=== PATIENT | male | born 1930 | race Caucasian/White ===

== ENCOUNTER 2017-10-25 08:14 | Day surgery (SDC) | payer OTHER, SELFPAY ==
[~2017-10-25] VITALS: Ht 172.7 cm; Wt 92.0 kg
[~2017-10-25 08:14] MED LIST: ELIQUIS5 MG PO; FURO40 PO; POTCHL10ER PO
[2017-10-25] MEDS ORDERED: Vitamin C100 M1 PO (08:52)
--- NOTE | 2017-10-25 12:41 | NUR ---
1146-RECEIVED THIS PATIENT FROM THE [facility] [employer] [facility]UT[facility]. S/P PACEMAKER PLACEMENT. PT IS ALERT AND ORIENTED. DENIES PAIN AT THIS TIME. PRESSURE DRESSING TO LEFT UPPER CHEST IS DRY AND INTACT. APPLIED ICE PACK AND 2 LB WEIGHT TO POST PACER SITE AND AN ARM SLING TO LEFT ARM. PT WAS INSTRUCTED NOT TO HYPEREXTEND HIS LEFT ARM. KEEP LEFT ARM CLOSE TO THE BODY POSSIBLE SO TO PREVENT FROM DISLODGING NEWLY PLACED PACEMAKER. 1220-EKG DONE AT THIS TIME PT IS 100% V-PACED. 1230-DR. SIGALA CAME BY TO SEE PT. UPDATED HIM OF PT'S STATUS.
--- NOTE | 2017-10-25 18:11 | NUR ---
SHIFT SUMMARY: PT HAD A PACEMAKER PLACED TODAY TO HIS LEFT UPPER CHEST. SURGICAL SITE IS COVERED WITH PRESSURE DRESSING. DRESSING IS CLEAN, DRY AND INTACT. ICE PACK, 2LB WEIGHT ON TOP OF THE SURGICAL DRESSING. ARM SLING TO LEFT ARM. PT IS 100% V-PACED. PT IS ALERT AND ORIENTED. DENIES SEVERE PAIN. PT STATED SITE IS SOMEWHAT "SORE." PT NOT WANTING PAIN MEDICATION. POSSIBLE DISCHARGE IN THE MORNING. REPEAT EKG IN AM.
--- NOTE | 2017-10-25 19:10 | NUR ---
ASSUMED CARE BEDSIDE REPORT AND ASSESSMENT COMPLETED. PT A&O X 4 AND W/O COMPLAINT. PT IS S/P PACEMAKER INSERTION TODAY. PT HAS PRESSURE DRESSING TO LEFT UPPER CHEST WALL W/ ICE PACK AND TWO POUND WT IN PLACE WITH LEFT ARM SLINGED. VSS, EKG IS 100% VENTRICULAR PACED, SPOT CHECK O2 SATS 98% ON RA. PT'S IN ROOM AND PLANNING ON SPENDING THE NIGHT. WILL CONTINUE TO MONITOR.
--- NOTE | 2017-10-26 06:05 | NUR ---
XRAY PT TO XRAY DEPARTMENT W/ TECH ON TELE MONITOR VIA W/C.
--- NOTE | 2017-10-26 06:16 | NUR ---
SHIFT SUMMARY NO ACUTE EVENTS OVERNIGHT. PT HAS KEPT LEFT ARM IN SLING WITH ICE PACK AND TWO POUND WT PER ORDERS AND CONTINUED TO DENY PAIN FOR SHIFT. EKG SHOWS 100% VENTRICULAR PACED RHYTHM, BP STABLE AND SPOT CHECK O2 SATS >95% ON RA. PT WENT TO XRAY DEPT THIS AM FOR CXR AND HAD 12 LEAD EKG PER ORDERS. HAS REMAINED IN ROOM. WILL CONTINUE TO MONITOR AND REPORT OFF TO AM RN.
--- NOTE | 2017-10-26 09:29 | NUR ---
PT A/O, LUNGS CLEAR AND ON RA, NO N/V, ABD SOFT, HAS BEEN UP TO VOID, NO EDEMA. L SHOULDER SITE DSG D/I WITH ICE BAG AND 2 LBS WEIGHT APPLIED. PT DENIES PAIN BUT NOTES SOME SORENESS. DR SIGALA IN TO REMOVE PRESSURE DSG AND OPSITE DSG UNDER REMAINS INTACT. PT INSTRUCTED TO AFTER CARE BY DR SIGALA BUT WILL REPEAT WITH DISCHARGE. VSS. PT REQUESTS TO HOLD AM LAS[facility] MEDS AND WILL BEGIN AT HE ARRIVES HOME THIS AM.
[2017-10-26] MEDS ORDERED: CEPH500 PO (09:42)
--- NOTE | 2017-10-26 10:23 | NUR ---
1005 pt to [facility] [place] with fany tarango. PT DISCHARGE INSTRUCTIONS AND RX CALLED PER GEOFFREY Del Rio RN WELL IV D/C'ED INTACT. PT DID NOT TAKE PO AM MEDS AT HIS REQUEST AND AGAIN REMINDED TO TAKE THESE UPON ARRIVING HOME. ARM SLING REMAINS IN PLACE AND PT EDUCATED ABOUT USE.
[2018-01-20] MEDS ORDERED: ELIQUIS5 MG PO (15:08)
[2018-01-20] MEDS ORDERED: ONE DAILY COMP1 EACH PO (15:09)
== END 2017-10-26 10:10 | disposition home or self-care (01) ==
LOC: MHTC 08:14 → ICUW 11:49 → MHTC 10-26 10:10
PROC: 02HK3JZ Insertion of Pacemaker Lead into Right Ventricle, Percutaneous Approach (ICD-10-PCS; principal; 2017-10-26)
PROC: 0JH604Z Insertion of Pacemaker, Single Chamber into Chest Subcutaneous Tissue and Fascia, Open Approach (ICD-10-PCS; principal; 2017-10-26)
DX: I48.2 Chronic atrial fibrillation (principal); I44.2 Atrioventricular block, complete; I35.0 Nonrheumatic aortic (valve) stenosis; I87.2 Venous insufficiency (chronic) (peripheral); I50.30 Unspecified diastolic (congestive) heart failure; Z79.899 Other long term (current) drug therapy; Z79.01 Long term (current) use of anticoagulants
CPT/HCPCS: 33207; 71020; 93005; 93010; 99152; 99153; C1786; C1894; C1898; J0690; J1644; J2250; J3010; J7030; J7040; Q9967

== ENCOUNTER 2018-02-09 06:44 | Day surgery (SDC) | payer OTHER, SELFPAY ==
[~2018-02-09] VITALS: Ht 172.7 cm; Wt 91.6 kg
[~2018-02-09 06:44] MED LIST changes: +CEPH500 PO; +ONE DAILY COMP1 EACH PO; +Vitamin C100 M1 PO
[2018-02-10 04:40] LABS: BASOPHILS ABSOLUTE AUTO 0.05 K/mm3 (0.00-0.23); BASOPHILS PERCENT AUTO 1 % (0-2); EOSINOPHILS ABSOLUTE AUTO 0.26 K/mm3 (0.00-0.68); EOSINOPHILS PERCENT AUTO 3 % (0-6); Hematocrit 34.7 % (37.0-53.0); Hemoglobin 11.1 g/dL (13.5-17.5); IMMATURE GRAN ABSOLUTE AUTO 0.01 K/mm3 (0.00-0.10); IMMATURE GRAN PERCENT AUTO 0 % (0-1); LYMPHOCYTES ABSOLUTE AUTO 1.55 K/mm3 (0.84-5.20); LYMPHOCYTES PERCENT AUTO 18 % (21-46); MONOCYTES ABSOLUTE AUTO 1.01 K/mm3 (0.16-1.47); MONOCYTES PERCENT AUTO 12 % (4-13); Mean Corpuscular HGB 30.7 pg (26.0-34.0); Mean Corpuscular Volume 96 fL (80-100); Mean Platelet Volume 10.5 fL (9.1-12.4); NEUTROPHILS ABSOLUTE AUTO 5.55 K/mm3 (1.96-9.15); NEUTROPHILS PERCENT AUTO 66 % (41-73); Platelet Count 170 K/mm3 (150-400); RDW Coefficient Variation 12.8 % (11.7-14.2); RDW Standard Deviation 45.3 fL (35.1-46.3); Red Blood Cell Count 3.62 M/mm3 (4.30-5.90); White Blood Cell Count 8.43 K/mm3 (4.00-11.30)
[2018-02-10 04:55] LABS: Anion Gap 4 mmol/L (6-16); Blood Urea Nitrogen 19 mg/dL (8-24); Bun/Creatinine Ratio 19.4 (12.0-20.0); CO2, Blood 32 mmol/L (21-32); Calcium, Blood 8.2 mg/dL (8.5-10.1); Chloride, Blood 104 mmol/L (98-108); Creatinine, Blood 0.98 mg/dL (0.60-1.20); Glomerular Filtration Rate >60 (60-); Glucose, Blood 124 mg/dL (70-99); Magnesium, Blood 1.9 mg/dL (1.6-2.4); Potassium, Blood 4.3 mmol/L (3.5-5.5); Sodium, Blood 140 mmol/L (136-145)
[2018-02-10] MEDS ORDERED: Percocet 5-3251 EACH PO (09:25)
[2018-02-10] MEDS ORDERED: PROM25 PO (09:25)
== END 2018-02-10 10:50 | disposition home or self-care (01) ==
LOC: SURS 06:44 → PRE IP 06:44 → ORSCMMR 06:44 → PRE IP 10:00 → EDSTATUS 10:00 → SURS 12:20 → ORSCMMR 02-10 10:50 → SURS 02-10 10:50
PROVIDERS: Orthopaedic Surgery
PROC: 0SRC0J9 Replacement of Right Knee Joint with Synthetic Substitute, Cemented, Open Approach (ICD-10-PCS; principal; 2018-02-09 10:00)
DX: M17.11 Unilateral primary osteoarthritis, right knee (principal); I48.91 Unspecified atrial fibrillation; Z95.0 Presence of cardiac pacemaker
CPT/HCPCS: 36415; 73560-RT; 80048; 83735; 85025; 86850; 86900; 86901; 88300; 97110; 97116; 97161; 97530; C1713; C1776; G8978; G8979; J0171; J0690; J0735; J1885; J2250; J2795; J3010; J3370; J7120